=== PATIENT | female | born 1970 | race Caucasian/White ===

== ENCOUNTER → 2023-10-08 08:57 | Outpatient (REF) | payer OTHER, SELFPAY | LOC: RAD 08:57 | PROVIDERS: ATTENDING PHYSICIAN Internal Medicine; FAMILY PHYSICIAN Physician Assistant Medical | DX: K21.9 Gastro-esophageal reflux disease without esophagitis (principal) | CPT/HCPCS: 74221 ==

== ENCOUNTER → 2023-11-04 06:32 | Day surgery (SDC) | payer OTHER, SELFPAY | LOC: GI 06:32 | PROVIDERS: ATTENDING PHYSICIAN Internal Medicine | DX: R12 Heartburn (principal); K22.89 Other specified disease of esophagus; K44.9 Diaphragmatic hernia without obstruction or gangrene; Z98.0 Intestinal bypass and anastomosis status; K20.90 Esophagitis, unspecified without bleeding | CPT/HCPCS: 43239; 88305 ==

== ENCOUNTER 2023-12-23 10:29 | Emergency (ER) | payer OTHER, SELFPAY ==
[2023-12-23 10:43] VITALS: BP 116/68
[2023-12-23 11:15] VITALS: BP 125/85
[2023-12-23 11:24] VITALS: BMI 26.7
[2023-12-23 11:36] LABS: % Basophils 0.8 % (0-2); % Eosinophils 2.7 % (0-6); % Immature Granulocytes 0.3 % (0-0.5); % Lymphocytes 28.5 % (20.5-51.1); % Monocytes 6.5 % (1.7-9.3); % Neutrophils 61.2 % (42.2-75.2); Absolute Basophils 0.1 10^3/uL (0-0.2); Absolute Eosinophils 0.3 10^3/uL (0-0.7); Absolute Lymphocytes 2.6 10^3/uL (1.2-3.4); Absolute Monocytes 0.6 10^3/uL (0.1-0.6); Absolute Neutrophils 5.6 10^3/uL (1.4-6.5); Hematocrit 38.2 % (37.0-47.0); Hemoglobin 12.5 g/dL (12.0-16.0); Mean Corp Hgb Conc. 32.7 g/dL (33.0-37.0); Mean Corpuscular Volume 91.8 fL (81.0-99.0); Mean Platelet Volume 10.3 fL (7.4-10.4); Nucleated Red Blood Cells % 0 %; Platelet Count 300 10^3/uL (130-400); Red Blood Cell Count 4.16 10^6/uL (4.20-5.40); Red Cell Dist. Width 13.3 % (11.5-14.5); White Blood Cell Count 9.1 10^3/uL (4.8-10.8)
[2023-12-23 11:37] LABS: Urine Albumin Negative (Neg - Trace); Urine Bilirubin Negative (Negative); Urine Character Clear (Clear); Urine Color Yellow; Urine Glucose Negative (Negative); Urine Ketone Negative (Negative); Urine Leukocyte Trace (Negative); Urine Nitrite Negative (Negative); Urine Occult Blood 1+ (Negative); Urine Urobilinogen Negative (Neg - 1+)
[2023-12-23] MEDS: NSS 1000 IV (11:53)
[2023-12-23 11:55] LABS: ALT (SGPT) 14 U/L (0-35); AST (SGOT) 26 U/L (14-36); Albumin 4.8 g/dl (3.5-5.0); Alkaline Phosphatase 67 U/L (38-126); Blood Urea Nitrogen 11 mg/dl (7-17); Calcium 9.3 mg/dl (8.4-10.2); Carbon Dioxide 28 mmol/L (22-30); Chloride 106 mmol/L (98-107); Estimated Creatinine Clearance 73 ml/min; Glucose 87 mg/dl (70-99); Magnesium 1.8 mg/dl (1.6-2.3); Potassium 3.8 mmol/L (3.5-5.1); Sodium 139 mmol/L (135-145); Total Bilirubin 0.5 mg/dl (0.2-1.3); Total Protein 7.4 g/dl (6.3-8.2); eGFR > 60.00
[2023-12-23 12:00] VITALS: BP 87/47
[2023-12-23 12:01] VITALS: BP 83/53
[2023-12-23 12:05] LABS: Urine Bacteria Few (Negative); Urine Red Blood Cell 0-2 /HPF (0-2); Urine White Cell 0-2 /HPF (0-5)
[2023-12-23 12:07] LABS: Lipase 98 U/L (23-300)
[2023-12-23 13:00] VITALS: BP 99/69
--- NOTE | 2023-12-23 13:13 | ED.GENMED ---
History of Present Illness
General
Chief Complaint: Abdominal Symptoms
Source: patient
Exam Limitations: none
Time Seen by Provider: 12/23/23 11:18
Nursing documentation reviewed up to this point in time: agreed with
Travel History
Have you had any contact with someone who has COVID-19?: No
Do you have any symptoms of coronavirus? Fever > 100 degrees, chills, cough, shortness of breath, sore throat, loss of taste or smell, muscle aches, or headache?: No
History of Present Illness
History of Present Illness:
Patient presents ED secondary to persistent nonbloody, watery diarrhea over the past 4 days, despite taking [id number] antidiarrheal medication. Patient reports returning from [facility], 2 days prior to onset of her symptoms.
Patient was symptomatic reported for 3 days as part of conference. However, patient states that she only drank out of bottled water. Since returning home, patient has had same meal since her who is not experiencing any symptoms. Denies
abdominal pain. Denies fever or chills. Denies vomiting. Denies loss of appetite. Patient has been able to eat and drink fluids with her ongoing symptoms.
Past History
Past History
ED Past Medical History: Asthma, Other (Chronic back pain), Other (bronchitis.pneumonia, RLS) and Other ('Clotting disorder')
ED Past Surgical History: Cholecystectomy, Gynecological, Orthopedic and Other (Lap band)
Social History
Tobacco: Smoker
Alcohol: Occasional
Drug: None
Personal:
Living: with family
Employment: Employed
Family History
Family History: Other (Hypertension)
Review of Systems
Review of Systems
Allergies reviewed?: Yes
All Other Systems: ROS reviewed and negative except as documented in HPI and ROS
Constitutional: Reports no symptoms; Denies fever
EENT: Reports no symptoms
Respiratory: Reports no symptoms
Cardiac: Reports no symptoms
ABD/GI: Reports nausea and diarrhea; Denies abdominal pain or vomiting
: Reports no symptoms
Musculoskeletal: Reports no symptoms
Skin: Reports no symptoms
Neurological: Reports no symptoms
Phy Exam
Physical Exam
Physical Exam:
Physical Exam
General: mild distress, not acutely ill. afebrile.
Head: nc/at. eomi
Neck: supple. no meningeal signs.
Heart: s1/s2 regular rate and rhythm, no murmur. equal radial pulses.
Lungs: no acute respiratory distress. clear bilaterally
Abdomen: normal bowel sounds. not tender.
Neuro: alert and oriented. no focal neurological deficits
Skin: no rash
Psychiatric: well kept. interactive and cooperative
Extremities: no edema. no calf tenderness.
Course
Orders/Labs/Results
Orders:
Orders
12/23/23 11:03
IV Insert/Care/Rem.- Treatment PRN
12/23/23 11:07
Complete Blood Count/With Diff Urgent
Comprehensive Metabolic Panel Urgent
Lipase Urgent
Magnesium Urgent
Comment: ADD ON
12/23/23 11:22
Urinalysis Reflex To Culture Urgent
Date Specimen was Collected: 12/23/23
Time Specimen was Collected: 11:03
Urine Microscopic Reflex Cult Urgent
12/23/23 11:27
Add On- LAB Urgent
Tests Added?: magnesium
12/23/23 11:28
0.9% Sodium Chloride 1000 ml [Nss] 1,000 ml IV BOLUS
Abnormal Lab Results
12/23/23 12/23/23
11:07 11:22
RBC 4.16 L 10^6/uL
(4.20-5.40)
MCHC 32.7 L g/dL
(33.0-37.0)
Ur Occult Blood Reflex 1+ A
(Negative)
Leukocyte Esterase Rfl Trace A
(Negative)
Urine Bacteria (Reflex) Few A
(Negative)
12/23/23 11:07
12/23/23 11:07
Vital Signs
Initial and Last Documented VS:
Initial Vital Signs
Temp Pulse Resp BP Pulse Ox
98.6 F 76 20 116/68 100
12/23/23 10:43 12/23/23 10:43 12/23/23 10:43 12/23/23 10:43 12/23/23 10:43
Last Documented Vital Signs
Temp Pulse Resp BP Pulse Ox
98.6 F 76 20 99/69 96
12/23/23 10:43 12/23/23 10:43 12/23/23 10:43 12/23/23 13:00 12/23/23 13:30
MDM/Problems Addressed
MDM/Problems Addressed:
Patient with an unremarkable workup in ED, including blood work. Patient remains otherwise afebrile, hemodynamically stable, and nontoxic-appearing. Patient reports improvement in symptoms after IV hydration. Patient with likely viral illness.
Will attempt to obtain stool sample prior to discharge. Otherwise, patient is stable to be discharged home with recommendation to follow-up with PCP or referred GI physician for reevaluation as an outpatient.
*Critical Care Note
Total Time (30-74mins, 75-104mins- exclusive of procedures): Not Applicable
ED Attending Note
-
Portions of this chart may have been created with voice recognition software.� Occasional wrong word or��sound alike� substitutions may have occurred due to the inherent limitations of voice recognition software.
Discharge Plan
Departure
Patient Disposition: Home (Routine Discharge)
Date of Disposition: 12/23/23
Time of Disposition: 13:38
Patient with high blood pressure during this ER visit?: No
Discharge Problem:
Diarrhea
Instructions: Diarrhea in teens and adults
Prescriptions:
No Action
ropinirole 2 MG tablet
4 mg PO HS
albuterol sulfate 2.5 MG/3 ML solution for nebulization
2.5 mg inhalation R Q4HPRN PRN (Reason: shortness of breath, cough) Qty: 1 0RF
venlafaxine 75 MG capsule,extended release 24hr
150 mg PO DAILY
omeprazole 40 MG capsule,delayed release(DR/EC)
40 mg PO DAILY
fentanyl 25 MCG patch 72 hour
25 mcg transdermal Q72H
pregabalin 150 MG capsule
150 mg PO BID
oxycodone 10 MG tablet
20 mg PO Q6
clonazepam 0.5 MG tablet
0.5 mg PO [id number] PRN (Reason: anxiety)
quetiapine 100 MG tablet
100 mg PO DAILY
lubiprostone 24 MCG capsule
24 mcg PO BID
Referrals:
Gail Briceno MD [Active] -
Mo Koroma PA-C [Family Provider] -
Activity Restrictions/Additional Instructions:
As discussed, please follow-up with your primary care physician and/or refer to GI physician for further evaluation and treatment. Please consider return to ED with worsening symptoms.
Interventions
Interventions:
*Risk Screen - Suicide Last Done: 12/23/23 12:56
*General Assessment Last Done: 12/23/23 12:56
*Neglect/Abuse Screening Last Done: 12/23/23 12:56
ED- Fall Risk Assessment Last Done: 12/23/23 11:24
*ED COVID-19 Vaccine History Last Done: 12/23/23 10:43
*Nursing Disposition Last Done: 12/23/23 13:47
RW-Xyuvox-Bubadamilr Assessment Last Done: 12/23/23 11:24
Discharge Date and Time
Discharge Date/Time: 12/23/23 13:50
Print Language: KYRGYZ
== END 2023-12-23 13:50 | disposition home or self-care (01) ==
LOC: EMR 10:29
PROVIDERS: EMERGENCY PHYSICIAN Emergency Medicine; FAMILY PHYSICIAN Physician Assistant Medical
DX: R19.7 Diarrhea, unspecified (principal); J45.909 Unspecified asthma, uncomplicated; G25.81 Restless legs syndrome; G89.29 Other chronic pain; F17.200 Nicotine dependence, unspecified, uncomplicated; Z82.49 Family history of ischemic heart disease and other diseases of the circulatory system; Z90.49 Acquired absence of other specified parts of digestive tract
CPT/HCPCS: 99283; 96360; 80053; 81003; 81015; 83690; 83735; 85025

== ENCOUNTER → 2024-04-22 08:50 | Outpatient (REF) | payer OTHER, SELFPAY | LOC: WDC 08:50 | PROVIDERS: ATTENDING PHYSICIAN Physician Assistant Medical | DX: Z12.31 Encounter for screening mammogram for malignant neoplasm of breast (principal) | CPT/HCPCS: 77063; 77067 ==

== ENCOUNTER → 2024-04-28 07:14 | Outpatient (REF) | payer OTHER, SELFPAY | LOC: RAD 07:14 | PROVIDERS: ATTENDING PHYSICIAN Nurse Practitioner Family | DX: E04.1 Nontoxic single thyroid nodule (principal) | CPT/HCPCS: 76536 ==

== ENCOUNTER → 2024-05-01 06:17 | Day surgery (SDC) | payer OTHER, SELFPAY | LOC: GI 06:17 | PROVIDERS: ATTENDING PHYSICIAN Internal Medicine | DX: R19.7 Diarrhea, unspecified (principal); K64.8 Other hemorrhoids; R14.0 Abdominal distension (gaseous) | CPT/HCPCS: 45380; 88305 ==

== ENCOUNTER → 2024-05-11 10:11 | Outpatient (REF) | payer OTHER, SELFPAY | LOC: PAVMRI 10:11 | PROVIDERS: ATTENDING PHYSICIAN Physical Medicine & Rehabilitation; FAMILY PHYSICIAN Physician Assistant Medical | DX: M54.16 Radiculopathy, lumbar region (principal) | CPT/HCPCS: 72148 ==

== ENCOUNTER → 2024-05-23 07:00 | Outpatient (REF) | payer OTHER, SELFPAY | LOC: RAD 07:00 | PROVIDERS: ATTENDING PHYSICIAN Physical Medicine & Rehabilitation; FAMILY PHYSICIAN Physician Assistant Medical | DX: M54.16 Radiculopathy, lumbar region (principal) | CPT/HCPCS: 72131 ==

== ENCOUNTER → 2024-07-20 12:39 | Outpatient (REF) | payer OTHER, SELFPAY | LOC: RAD 12:39 | PROVIDERS: ATTENDING PHYSICIAN Internal Medicine; FAMILY PHYSICIAN Physician Assistant Medical | DX: R19.7 Diarrhea, unspecified (principal); Z98.84 Bariatric surgery status; R63.4 Abnormal weight loss; R19.5 Other fecal abnormalities | CPT/HCPCS: 74177; Q9967 ==

== ENCOUNTER 2024-09-18 09:13 | Emergency (ER) | payer OTHER, SELFPAY ==
[2024-09-18 09:16] VITALS: BP 171/90
--- NOTE | 2024-09-18 12:33 | ED.GENMED ---
History of Present Illness
General
Chief Complaint: Musculo-Skeletal Complaint
Source: patient
Exam Limitations: none
Time Seen by Provider: 09/18/24 11:45
Nursing documentation reviewed up to this point in time: agreed with
History of Present Illness
History of Present Illness:
Patient is a 54-year-old female with chronic pain with pain pump presents to the ER for evaluation after fall. Patient fell down 2-3 steps which were half carpeted half wood. She denies hitting her head no loss of conscious. assisted her
up and she was awake alert after fall. He heard her fall. She complains of pain throughout her whole left leg left foot left ankle left knee. She feels sore in her upper back and in her neck area. She denies headache. She states' sometimes my
doctor gives me Oxy's as needed.'
Past History
Past History
ED Past Medical History: Asthma, Other (Chronic back pain), Other (bronchitis.pneumonia, RLS) and Other ('Clotting disorder')
ED Past Surgical History: Cholecystectomy, Gynecological, Orthopedic and Other (Lap band)
Social History
Tobacco: Smoker
Alcohol: Occasional
Drug: None
Personal:
Living: with family
Employment: Employed
Family History
Family History: Other (Hypertension)
Review of Systems
Review of Systems
Allergies reviewed?: Yes
All Other Systems: ROS reviewed and negative except as documented in HPI and ROS
Constitutional: Reports no symptoms
Respiratory: Reports no symptoms
Cardiac: Reports no symptoms
ABD/GI: Reports no symptoms
Musculoskeletal: Reports other (left foot/ankle/knee pain, pain in upper back)
Skin: Reports no symptoms
Neurological: Reports no symptoms; Denies headache
Psychiatric: Reports no symptoms
Phy Exam
General Physical Exam
General Presentation: no apparent distress
General age: appears stated age
General Skin: warm and dry
General Habitus: normal
General Mental: alert
General Hydration: appears well hydrated
Neurological Exam
Neurological Exam: alert and oriented x3
Musculoskeletal Exam
Musculoskeletal Exam: other (Small abrasion to left anterior knee no obvious swelling to knee able to flex and extend, no obvious swelling to foot or ankle however nonspecific tenderness throughout, sore throughout the bilateral neck muscles, no
bony tenderness to shoulders, no obvious head)
Skin Exam
Skin Exam: normal color and warm/dry
Psychiatric Exam
Psychiatric Exam: normal mood/affect
Course
Orders/Labs/Results
Orders:
Orders
09/18/24 12:32
Ankle, left 3 view CR [CR Ankle - Left Min 3 Views ] Urgent
Comment:
Reason For Exam: trauma
Foot, Left 3 View [CR Foot - Left Min 3 Views] Urgent
Comment:
Reason For Exam: trauma
Knee, Left 4 or More Views [CR Knee - Left 4 Or More View*] Urgent
Comment:
Reason For Exam: trauma
09/18/24 12:33
CT Cervical Spine W/o Iv Contr Urgent
Comment:
Reason For Exam: trauma
Ketorolac [Toradol] 30 mg IM NOW STA
09/18/24 14:26
Vital Signs- Treatment ONCE
Frequency: Once
Vital Signs
Initial and Last Documented VS:
Initial Vital Signs
Temp Pulse Resp BP Pulse Ox
99.1 F 83 18 171/90 100
09/18/24 09:16 09/18/24 09:16 09/18/24 09:16 09/18/24 09:16 09/18/24 09:16
Last Documented Vital Signs
Temp Pulse Resp BP Pulse Ox
98.6 F 83 18 164/84 100
09/18/24 12:46 09/18/24 09:16 09/18/24 09:16 09/18/24 14:56 09/18/24 09:16
MDM/Problems Addressed
Differential Diagnosis Includes:
Not limited to cervical strain versus less likely fracture, fractures versus contusion versus sprains of extremities
MDM/Problems Addressed:
Patient with no obvious fractures patient denies hitting head no obvious head injury no headache mild neck discomfort CT head C-spine negative. On exam patient complains of pain throughout left knee ankle foot however no obvious swelling on exam
nonspecific tenderness good range of motion no acute findings on x-ray. Will place in a knee immobilizer /case shoe. discussed ice and elevation.
*Radiology
Radiology exam reviewed: radiology read reviewed
*Pulse Oximetry
Patient hypoxic: no
*Critical Care Note
Total Time (30-74mins, 75-104mins- exclusive of procedures): Not Applicable
ED Attending Note
-
Portions of this chart may have been created with voice recognition software.� Occasional wrong word or��sound alike� substitutions may have occurred due to the inherent limitations of voice recognition software.
Discharge Plan
Departure
Patient Disposition: Home (Routine Discharge)
Date of Disposition: 09/18/24
Time of Disposition: 14:26
Patient with high blood pressure during this ER visit?: Yes
Covid-19: Not Applicable
Discharge Problem:
Contusion, Sprain, strain
Instructions: Muscle Strain (DC), Sprain (DC), Contusion
Prescriptions:
No Action
ropinirole 2 MG tablet
4 mg PO HS
albuterol sulfate 2.5 MG/3 ML solution for nebulization
2.5 mg inhalation R Q4HPRN PRN (Reason: shortness of breath, cough) Qty: 1 0RF
venlafaxine 75 MG capsule,extended release 24hr
150 mg PO DAILY
omeprazole 40 MG capsule,delayed release(DR/EC)
40 mg PO DAILY
fentanyl 25 MCG patch 72 hour
25 mcg transdermal Q72H
pregabalin 150 MG capsule
150 mg PO BID
oxycodone 10 MG tablet
20 mg PO Q6
clonazepam 0.5 MG tablet
0.5 mg PO [id number] PRN (Reason: anxiety)
quetiapine 100 MG tablet
100 mg PO DAILY
lubiprostone 24 MCG capsule
24 mcg PO BID
Referrals:
Mo Koroma PA-C [Family Provider] -
Tray Farris MD [Active] -
Activity Restrictions/Additional Instructions:
As discussed wear immobilizer for support along with cast shoe.
Ice the affected areas for the next 24 hours 20 minutes at a time several times a day
Tylenol as needed for discomfort
Follow-up with your family doctor the next of days as well as orthopedics if needed.
Return if any worsening of symptoms
Interventions
Interventions:
*Risk Screen - Suicide Last Done: 09/18/24 09:16
*General Assessment Last Done: 09/18/24 09:16
*Neglect/Abuse Screening Last Done: 09/18/24 09:16
ED- Fall Risk Assessment Last Done: 09/18/24 14:56
*ED COVID-19 Vaccine History Last Done: 09/18/24 14:56
*Nursing Disposition Last Done: 09/18/24 14:56
ED-Musculoskeletal Assessment Last Done: 09/18/24 11:12
Discharge Date and Time
Discharge Date/Time: 09/18/24 14:57
Print Language: MACANESE
[2024-09-18] MEDS: TORADOL 30 MG IM (12:41)
[2024-09-18 14:56] VITALS: BP 164/84
== END 2024-09-18 14:57 | disposition home or self-care (01) ==
LOC: EMR 09:13
PROVIDERS: EMERGENCY PHYSICIAN Student in an Organized Health Care Education/Training Program; FAMILY PHYSICIAN Physician Assistant Medical
DX: S80.212A Abrasion, left knee, initial encounter (principal); M25.572 Pain in left ankle and joints of left foot; M54.2 Cervicalgia; W10.9XXA Fall (on) (from) unspecified stairs and steps, initial encounter; J45.909 Unspecified asthma, uncomplicated; G89.29 Other chronic pain; F17.200 Nicotine dependence, unspecified, uncomplicated; G25.81 Restless legs syndrome; Z90.49 Acquired absence of other specified parts of digestive tract
CPT/HCPCS: 29505; 96372; 99284; 72125; 73564; 73610; 73630

== ENCOUNTER → 2024-09-29 13:19 | Outpatient (REF) | payer OTHER, SELFPAY | LOC: HWRAD 13:19 | PROVIDERS: ATTENDING PHYSICIAN Physician Assistant Surgical; FAMILY PHYSICIAN Physician Assistant Medical | DX: M79.672 Pain in left foot (principal); M25.572 Pain in left ankle and joints of left foot | CPT/HCPCS: 73700 ==

== ENCOUNTER → 2025-03-01 06:44 | Outpatient (REF) | payer OTHER, SELFPAY | LOC: MRI 06:44 | PROVIDERS: ATTENDING PHYSICIAN Physician Assistant Surgical; FAMILY PHYSICIAN Physician Assistant Medical | DX: M79.672 Pain in left foot (principal); M25.572 Pain in left ankle and joints of left foot | CPT/HCPCS: 73718; 73721 ==